=== PATIENT | female | born 1955 | race African-American/Black ===

== ENCOUNTER 2023-11-04 10:03 | Emergency (ER) | payer OTHER, MEDICARE ==
[2023-11-04] MEDS ORDERED: KETOROLAC 30 MG/ML INJ ONE (10:41)
[2023-11-04] MEDS ORDERED: LABETALOL 20 MG/4ML SYRINGE IV ONE (10:41)
[2023-11-04 10:52] LABS: Absolute Eosinophils 0.1 K/uL (0-0.5); Absolute Lymphocytes (CBC) 1.9 K/uL (0.7-4.9); Absolute Monocytes 0.2 K/uL (0.1-1.3); Absolute Neutrophil 3.9 K/uL (1.8-8.0); Basophils % 0.7 % (0-1.3); Eosinophils % 1.2 % (0-4.4); Hematocrit 43.3 % (36.0-45.0); MCH 27.9 pg (27.0-35.0); MCHC 32.3 g/dL (32.0-36.0); MCV 86.1 fL (80-100); MPV 8.2 fL (7.6-11.3); Neutrophils % 64.1 % (41.7-73.7); Nucleated Red Blood Cells % 0.1 % (0-0); Platelets 264 thou/uL (152-406); RBC Red Blood Cell Count 5.02 M/uL (3.86-4.86)
[2023-11-04 11:38] LABS: Anion Gap 7.4 mEq/L (5.0-15.0); Potassium 3.4 mEq/L (3.5-5.1)
--- NOTE | 2023-11-04 11:54 | RAD REPORT ---
EXAM DESCRIPTION: CT - Head Brain Wo Cont - 11/04/2023 10:50 am CLINICAL HISTORY: HTN Urgency, Headache COMPARISON: Head Brain Wo Cont dated 07/26/2023; HEAD BRAIN W O CONTRAST dated 09/24/2014 TECHNIQUE: Noncontrast head CT images were obtained without IV contrast. Multiplanar reformats were generated and reviewed. All CT scans are performed using dose optimization technique as appropriate and may include automated exposure control or mA/KV adjustment according to patient size. FINDINGS: No intracranial hemorrhage, mass, or edema. Midline structures are unremarkable. Normal ventricular caliber for age. Romero-white matter differentiation is preserved, without evidence of acute infarct. No abnormal extra- axial fluid collections. Mastoid air cells and visualized portions of the paranasal sinuses are clear. No acute bony findings. IMPRESSION: No evidence of an acute intracranial process.
--- NOTE | 2023-11-04 12:04 | ER ---
Nurse's Notes [facility] Name: Vick Parmar Age: 68 yrs Sex: Female : 1955 Arrival Date: 11/04/2023 Time: 10:03 Bed 8 Private MD: Amy Guzman C Diagnosis: Hypertensive urgency, headache, nausea Presentation: 11/03 10:30 Chief complaint: Patient states: she was getting a procedure for headaches this ap3 morning, when she was informed the procedure could not be done due to her being hypertensive. patient was instructed to come to the ED for further evaluation. Coronavirus screen: At this time, the client does not indicate any symptoms associated with coronavirus-19. Ebola Screen: No symptoms or risks identified at this time. Initial Sepsis Screen: Does the patient meet any 2 criteria? No. Patient's initial sepsis screen is negative. Does the patient have a suspected source of infection? No. Patient's initial sepsis screen is negative. Risk Assessment: Do you want to hurt yourself or someone else? Patient reports no desire to harm self or others. Onset of symptoms was November 04, 2023. 10:30 Method Of Arrival: Ambulatory ap3 10:30 Acuity: MICHELL 2 ap3 Triage Assessment: 10:32 General: Appears uncomfortable, Behavior is calm, cooperative, appropriate for age. ap3 Pain: Complains of pain in head. Neuro: Reports headache. Cardiovascular: Patient's skin is warm and dry. Respiratory: Airway is patent Respiratory effort is even, unlabored, Respiratory pattern is regular, symmetrical. Historical: - Allergies: 10:32 No Known Allergies; ap3 - PMHx: 10:32 Diabetes mellitus; Hypertensive disorder; ap3 - Immunization history:: Client reports receiving the 2nd dose of the Covid vaccine. - Infectious Disease History:: Denies. - Social history:: Smoking status: Patient denies any tobacco usage or history of. Screenin:18 [facility] ED Fall Risk Assessment (Adult) History of falling in the last 3 months, rs5 including since admission No falls in past 3 months (0 pts) Confusion or Disorientation No (0 pts) Intoxicated or Sedated No (0 pts) Impaired Gait No (0 pts) Mobility Assist Device Used No (0 pt) Altered Elimination No (0 pt) Score/Fall Risk Level 0 - 2 = Low Risk Oriented to surroundings, Maintained a safe environment. 10:32 Abuse screen: Denies threats or abuse. Nutritional screening: No deficits noted. ap3 Tuberculosis screening: No symptoms or risk factors identified. Assessment: 10:17 General: Appears in no apparent distress. uncomfortable, Behavior is cooperative. Pain: rs5 Complains of pain in neck Pain currently is 8 out of 10 on a pain scale. Quality of pain is described as aching, Is continuous. Neuro: Level of Consciousness is awake, alert, obeys commands, Oriented to person, place, time, situation. Cardiovascular: Patient's skin is warm and dry. Rhythm is regular. Respiratory: Airway is patent Respiratory effort is even, unlabored, Respiratory pattern is regular, symmetrical. GI: Abdomen is round non-distended, Abd is soft and non tender X 4 quads. : No signs and/or symptoms were reported regarding the genitourinary system. EENT: No signs and/or symptoms were reported regarding the EENT system. Derm: Skin is intact, Skin is dry, Skin is normal, Skin temperature is warm. Musculoskeletal: Range of motion: intact in all extremities. 11:25 Reassessment: Patient and/or family updated on plan of care and expected duration. Pain rs5 level reassessed. Patient is alert, oriented x 3, equal unlabored respirations, skin warm/dry/pink. Patient denies pain at this time. Patient states feeling better. Vital Signs: 10:30 BP 204 / 83; Pulse 89; Resp 18; Temp 97.7; Pulse Ox 100% ; Weight 85.73 kg; Height 5 ap3 ft. 7 in. ; Pain 9/10; 10:50 BP 185 / 79; Pulse 70; Resp 18; Pulse Ox 99% on R/A; rs5 11:45 BP 171 / 76; Pulse 72; Resp 18; Pulse Ox 99% on R/A; rs5 10:30 Body Mass Index 29.60 (85.73 kg, 170.18 cm) ap3 10:30 Pain Scale: Adult ap3 ED Course: 10:05 Patient arrived in ED. mr 10:05 Amy Guzman MD is Private Physician. mr 10:14 Candace Barton MD is Attending Physician. sp3 10:17 Patrick Donohue RN is Primary Nurse. rs5 10:18 Patient has correct armband on for positive identification. Placed in gown. Bed in low rs5 position. Call light in reach. Side rails up X2. 10:32 Triage completed. ap3 10:32 Arm band placed on right wrist. ap3 10:40 EKG done. [email or web address] 10:43 Initial lab(s) drawn, by ED staff, sent to lab. Inserted saline lock: 22 gauge in left jg11 hand, using aseptic technique. Blood collected. 10:44 Client placed on continuous cardiac and pulse oximetry monitoring. NIBP monitoring jg11 applied. clinical research monitor on. Pulse ox on. 10:47 No provider procedures requiring assistance completed. rs5 10:51 CT Head Brain wo Cont In Process Unspecified. EDMS 12:10 IV discontinued, intact, bleeding controlled, No redness/swelling at site. Pressure rs5 dressing applied. Administered Medications: 10:47 Drug: Labetalol IV 10 mg IV at calculated rate once over 2 mins; For SBP greater than rs5 140. Hold for HR less than 60, notify provider. Route: IV; Rate: calculated rate; Infused Over: 2 mins; Site: left hand; 11:20 Follow up: Response: No adverse reaction rs5 10:47 Drug: Ketorolac IVP 15 mg IVP once Route: IVP; Site: left hand; rs5 16:52 Follow up: Response: No adverse reaction rs5 Medication: 10:48 VIS not applicable for this client. rs5 Outcome: 12:03 Discharge ordered by . sp3 12:10 Discharged to home ambulatory, with family, rs5 12:10 Condition: stable 12:10 Discharge instructions given to patient, family, Instructed on discharge instructions, follow up and referral plans. Demonstrated understanding of instructions, follow-up care, 12:13 Patient left the ED. rs5 Signatures: Dispatcher [employer] EDAL GonzalezDestiny, Adolfo Reg mr Piper Mensah RN RN ap3 Candace Barton MD MD sp3 Patrick Donohue RN RN rs5 Yash Guzmán [email or web address]
--- NOTE | 2023-11-04 12:04 | EDPHYS ---
Physician Documentation [facility] Name: Vick Parmar Age: 68 yrs Sex: Female : 1955 Arrival Date: 11/04/2023 Time: 10:03 Bed 8 Private MD: Amy Guzman C ED Physician Candace Barton HPI: 11/03 10:49 This 68 yrs old Black Female presents to ER via Ambulatory with complaints of High sp3 Blood Pressure. 10:49 68-year-old female with history of diabetes and hypertension with cervical disc disease sp3 causing chronic headaches presents to the ED referred from [facility] for hypertensive urgency and worsening headache after receiving fentanyl prior to a planned cervical steroid injection. Patient was being prepped for the procedure and she received fentanyl unknown amount and this caused her to feel dizzy, lightheaded, nauseated and worsened her headache. They transported her here. Blood pressure is 204/83. She denies any chest pain, shortness of breath, back pain, abdominal pain, vomiting, diarrhea or any other concerning or ongoing symptoms. Her headache is improving but is still present.. Historical: - Allergies: 10:32 No Known Allergies; ap3 - PMHx: 10:32 Diabetes mellitus; Hypertensive disorder; ap3 - Immunization history:: Client reports receiving the 2nd dose of the Covid vaccine. - Infectious Disease History:: Denies. - Social history:: Smoking status: Patient denies any tobacco usage or history of. ROS: 10:50 Constitutional: Negative for fever, chills, and weight loss, Eyes: Negative for injury, sp3 pain, redness, and discharge, ENT: Negative for injury, pain, and discharge, Neck: Negative for injury, pain, and swelling, Respiratory: Negative for shortness of breath, cough, wheezing, and pleuritic chest pain, Back: Negative for injury and pain, MS/Extremity: Negative for injury and deformity, Skin: Negative for injury, rash, and discoloration, Psych: Negative for depression, anxiety, suicide ideation, homicidal ideation, and hallucinations, Allergy/Immunology: Negative for hives, rash, and allergies, Endocrine: Negative for neck swelling, polydipsia, polyuria, polyphagia, and marked weight changes, Hematologic/Lymphatic: Negative for swollen nodes, abnormal bleeding, and unusual bruising, 10:50 All other systems are negative, Exam: 10:50 Constitutional: This is a well developed, well nourished patient who is awake, alert, sp3 and in no acute distress. Head/Face: Normocephalic, atraumatic. Eyes: Pupils equal round and reactive to light, extra-ocular motions intact. Lids and lashes normal. Conjunctiva and sclera are non-icteric and not injected. Cornea within normal limits. Periorbital areas with no swelling, redness, or edema. ENT: Nares patent. No nasal discharge, no septal abnormalities noted. External auditory canals are clear. Oropharynx with no redness, swelling, or masses, exudates, or evidence of obstruction, uvula midline. Mucous membranes moist. Neck: Trachea midline, no thyromegaly or masses palpated, and no cervical lymphadenopathy. Supple, full range of motion without nuchal rigidity, or vertebral point tenderness. No Meningismus. Chest/axilla: Normal chest wall appearance and motion. Nontender with no deformity. No lesions are appreciated. Cardiovascular: Regular rate and rhythm with a normal S1 and S2. No gallops, murmurs, or rubs. Normal PMI, no JVD. No pulse deficits. Respiratory: Lungs have equal breath sounds bilaterally, clear to auscultation and percussion. No rales, rhonchi or wheezes noted. No increased work of breathing, no retractions or nasal flaring. Abdomen/GI: Soft, non-tender, with normal bowel sounds. No distension or tympany. No guarding or rebound. No evidence of tenderness throughout. Back: No spinal tenderness. No costovertebral tenderness. Full range of motion. Skin: Warm, dry with normal turgor. Normal color with no rashes, no lesions, and no evidence of cellulitis. MS/ Extremity: Pulses equal, no cyanosis. Neurovascular intact. Full, normal range of motion. Neuro: Awake and alert, GCS 15, oriented to person, place, time, and situation. Cranial nerves II-XII grossly intact. Motor strength 5/5 in all extremities. Sensory grossly intact. Cerebellar exam normal. Normal gait. Psych: Awake, alert, with orientation to person, place and time. Behavior, mood, and affect are within normal limits. 10:50 ECG was reviewed by the Attending Physician. EKG demonstrates normal sinus rhythm at 74 bpm with normal intervals, normal QRS, normal axis, nonspecific diffuse ST's ST changes without evidence of acute ischemia. Vital Signs: 10:30 BP 204 / 83; Pulse 89; Resp 18; Temp 97.7; Pulse Ox 100% ; Weight 85.73 kg; Height 5 ap3 ft. 7 in. ; Pain 9/10; 10:50 BP 185 / 79; Pulse 70; Resp 18; Pulse Ox 99% on R/A; rs5 11:45 BP 171 / 76; Pulse 72; Resp 18; Pulse Ox 99% on R/A; rs5 10:30 Body Mass Index 29.60 (85.73 kg, 170.18 cm) ap3 10:30 Pain Scale: Adult ap3 MDM: 10:20 Patient medically screened. sp3 10:51 Data reviewed: vital signs, nurses notes, EMS record, lab test result(s), EKG, sp3 radiologic studies. ED course: 68-year-old female with hypertensive urgency after receiving fentanyl. Blood pressure is down to 185/79. Labetalol 10 mg IV has been ordered along with ketorolac 15 mg IV for pain control. CT scan of the head, EKG and laboratory values including creatinine are pending. If no evidence of endorgan damage and patient is improved, we will safely discharge patient home to PCP follow-up.. 12:02 ED course: Workup negative and blood pressures improved. We will safely discharge 3 patient home at this time.. 11/03 10:39 Order name: Basic Metabolic Panel; Complete Time: 11:42 [facility] 11/03 10:39 Order name: CBC with Diff; Complete Time: 11:42 [facility] 11/03 10:39 Order name: Troponin HS; Complete Time: 11:42 3 11/03 10:39 Order name: CT Head Brain wo Cont; Complete Time: 12:02 3 11/03 10:39 Order name: EKG; Complete Time: 10:40 3 11/03 10:39 Order name: Cardiac monitoring; Complete Time: 10:44 3 11/03 10:39 Order name: EKG - Nurse/Tech; Complete Time: 10:40 3 11/03 10:39 Order name: IV Saline Lock; Complete Time: 10:40 [facility] 11/03 10:39 Order name: Labs collected and sent; Complete Time: 10:44 3 11/03 10:39 Order name: O2 Sat Monitoring; Complete Time: 10:44 sp3 11/03 11:11 Order name: Labs - recollect needed: recollect chemistries; Complete Time: 11:14 eb 11/03 11:42 Order name: Recheck Vital Signs; Complete Time: 11:45 sp3 Administered Medications: 10:47 Drug: Labetalol IV 10 mg IV at calculated rate once over 2 mins; For SBP greater than rs5 140. Hold for HR less than 60, notify provider. Route: IV; Rate: calculated rate; Infused Over: 2 mins; Site: left hand; 11:20 Follow up: Response: No adverse reaction rs5 10:47 Drug: Ketorolac IVP 15 mg IVP once Route: IVP; Site: left hand; rs5 16:52 Follow up: Response: No adverse reaction rs5 Disposition Summary: 11/04/23 12:03 Discharge Ordered Notes: Location: Home sp3 Condition: Stable sp3 Diagnosis - Hypertensive urgency, headache, nausea sp3 Followup: sp3 - With: Private Physician - When: Upon discharge from the Emergency Department - Reason: Continuance of care Discharge Instructions: - Discharge Summary Sheet sp3 - Hypertension, Adult sp3 Forms: - Medication Reconciliation Form sp3 - Thank You Letter sp3 - Antibiotic Education sp3 - Prescription Opioid Use sp3 - Patient Portal Instructions sp3 - Leadership Thank You Letter sp3 Signatures: Dispatcher [employer] Piper Gandhi RN RN ap3 Annabel Weiner Setul, MD MD sp3 Patrick Donohue RN RN rs5
[2023-11-04 12:48] VITALS: BP 171/76; TEMP 97.7; O2SAT 99
== END 2023-11-04 12:13 | disposition home or self-care (01) ==
LOC: ER 10:03
DX: I16.0 Hypertensive urgency (principal); R11.0 Nausea; E11.9 Type 2 diabetes mellitus without complications; I10 Essential (primary) hypertension
CPT/HCPCS: 36415; 70450; 80048; 84484; 85025; 93005; 96374; 96375; 99285